=== PATIENT | male | born 1975 | race Caucasian/White ===

== ENCOUNTER 2017-01-05 05:41 | Day surgery (SDC) | payer MEDICAID ==
[2017-01-05] MEDS ORDERED: Glycopyrrolate 0.2 MG/ML 2 ML SYRINGE IVPUSH ONE (06:10)
[2017-01-05] MEDS ORDERED: Dextrose 5%-Lactated Ringers 1,000 ML IV SCH (06:15)
[2017-01-05] MEDS ORDERED: fentaNYL 100 MCG/2 ML SDV ONE (06:51)
[2017-01-05] MEDS ORDERED: Propofol 200 MG/20 ML SDV ONE (06:51)
[2017-01-05] MEDS ORDERED: Midazolam 1 MG/ML 2 ML SDV ONE (06:51)
[2017-01-05 08:50] VITALS: BP 134/80
--- NOTE | 2017-01-14 15:20 | OR ---
DATE OF PROCEDURE: 01/05/2017 PREOPERATIVE DIAGNOSIS: Gastroesophageal reflux disease. POSTOPERATIVE DIAGNOSES: 1. Gastroesophageal reflux disease associated with wide open esophagogastric junction, and a small hiatal hernia. 2. Mild antral gastritis. OPERATIVE PROCEDURE: Esophagogastroduodenoscopy with: 1. Biopsies of antrum for CLOtest. 2. Biopsies of esophagogastric junction for histologic evaluation. ANESTHESIA: IV sedation. INDICATION FOR PROCEDURE: This is a 41-year-old male presenting with worsening gastroesophageal reflux disease, presently, he is on omeprazole 40 mg daily. Plan is to proceed with upper GI endoscopy with biopsies as indicated. Potential risks including bleeding and perforation were discussed, and the patient wishes to proceed. DETAILS OF PROCEDURE: The patient was taken to the operating room and placed in a left lateral decubitus position. IV sedation was administered, after which the upper GI endoscope was passed orally through the length of the esophagus and into the stomach with retroflexion view of the fundus, thereafter through the pyloric channel and to the junction of the third and fourth portions of the duodenum. Findings included a normal hypopharynx, larynx, upper esophageal sphincter, and esophageal body. At the EG junction, there was a small hiatal hernia, but essentially completely wide open esophagogastric junction. Upon viewing the distal esophagus, there being a large direct connection into the stomach, indicating essentially no reflux remained at this time, and this was associated with a moderate degree of inflammation intermittently with some two small linear ulcers present in the distal esophagus. Remainder of the stomach was otherwise showing some mild redness in the antrum. The pyloric channel and visualized portion of the duodenum were unremarkable. At this point, biopsies were taken from the antrum and sent for CLOtest for H. pylori. Multiple biopsies were then obtained from esophagogastric junction, sent for histologic evaluation. No bleeding from the biopsy sites were seen, and the procedure was then concluded. The patient will be continued on b.i.d. of omeprazole dosing pattern, specifically 40 mg of omeprazole b.i.d. We will see him back next week. The patient is morbidly obese and the patient certainly has indication for a surgical antireflux procedure. At this time, with the morbid obesity, a gastric bypass probably will be a better choice in terms of efficacy and this will also treat his other problems related to obesity and be preventative of other obesity related problems over time. We will see the patient back next Wednesday to discuss the biopsy findings and the treatment plan. Phil Whyte MD /[id number]
== END 2017-01-05 09:10 | disposition home or self-care (01) ==
LOC: JP.SDS 05:41
PROVIDERS: ATTEND Surgery
DX: K21.9 Gastro-esophageal reflux disease without esophagitis (principal); K44.9 Diaphragmatic hernia without obstruction or gangrene; K29.50 Unspecified chronic gastritis without bleeding; Z79.899 Other long term (current) drug therapy
CPT/HCPCS: 43239; 87081; 88305; J2250; J2704; J3010; J7042

== ENCOUNTER 2023-09-27 11:57 | Day surgery (SDC) | payer MEDICAID ==
[~2023-09-27 11:57] MED LIST: Midazolam 1 MG/ML 2 ML SDV ONE; Propofol 200 MG/20 ML SDV ONE; fentaNYL 50 MCG/ML SDV ONE
[2023-09-27 12:22] LABS: HEMATOCRIT 47.6 % (38.4-49.7); HEMOGLOBIN 16.1 g/dL (12.9-16.9); MEAN CORPUSCULAR HEMOGLOBIN 28.9 pg (31.6-35.5); MEAN CORPUSCULAR HGB CONC 33.8 g/dL (31.6-35.5); MEAN CORPUSCULAR VOLUME 85.5 fL (81.4-99.0); RED BLOOD CELL COUNT 5.57 M/uL (4.14-5.76); WHITE BLOOD CELL COUNT,WBC 9.2 K/uL (3.2-11.0)
[2023-09-27 12:46] LABS: A/G RATIO 0.8 (1.2-2.2); ALANINE AMINOTRANSFERASE,ALT 61 U/L (12-78); ALBUMIN 3.4 g/dL (3.4-5.0); ALKALINE PHOSPHATASE 71 U/L (46-116); ASPARTATE AMNIOTRANSFERASE,AST 57 U/L (15-37); BILIRUBIN TOTAL 0.9 mg/dL (0.2-1.0); BLOOD UREA NITROGEN,BUN 12 mg/dL (7-18); CALCIUM 8.6 mg/dL (8.5-10.1); CARBON DIOXIDE,CO2 30 mmol/L (21-32); CHLORIDE,CL 102 mmol/L (100-108); EST CRCL DRUG DOSING (CG) 113.32 mL/min; ESTIMATED GFR 94 mL/min (>60); GLUCOSE RANDOM 119 mg/dL (74-106); POTASSIUM,K 4.1 mmol/L (3.6-5.2); PROTEIN TOTAL,TP 7.8 g/dL (6.4-8.2); SODIUM,NA 139 mmol/L (140-148)
[2023-09-27] MEDS: Lactated Ringers 1,000 ML IV SCH (12:46)
[2023-09-27 12:47] LABS: ANION GAP 11.1 mmol/L (5.0-14.0)
[2023-09-27 14:07] VITALS: BP 130/75; PULSE 54
== END 2023-09-27 14:15 | disposition home or self-care (01) ==
LOC: JP.SDS 11:57
PROVIDERS: ATTEND Student in an Organized Health Care Education/Training Program
DX: K63.5 Polyp of colon (principal); K64.8 Other hemorrhoids
CPT/HCPCS: 36415; 45380; 80053; 85027; 93005; J2250; J2704; J3010; J7120; 88305; 93010